=== PATIENT | male | born 1945 | race Caucasian/White ===

== ENCOUNTER 2017-07-04 07:41 | Day surgery (SDC) | payer OTHER, MEDICARE ==
[2017-07-04] MEDS ORDERED: LIDOCAINE 1% 300 MG/30 ML SDV SC ONE (07:45)
[2017-07-04] MEDS ORDERED: LIDOCAINE 1% 300 MG/30 ML SDV ONE (07:54)
[2017-07-04] MEDS ORDERED: fentaNYL 100 MCG/2 ML INJ ONE (07:55)
[2017-07-04] MEDS ORDERED: MIDAZOLAM 2 MG/2 ML VIAL ONE (07:55)
[2017-07-04] MEDS ORDERED: BUPIVACAINE 0.5% 30 ML SDV ONE (07:56)
--- NOTE | 2017-07-04 08:34 | PDPROPOC ---
Sedation Plan of Care Sedation Plan of Care: vital signs stable, mental status noted, patient educated of risks, benefits, alternatives, patient can tolerate sedation ASA Classification: ASA 1 Planned drugs: fentanyl, midazolam Mallampati Score: Class 1 Mallampati Reference Image: Patient passed 3-3-2 rule?: Yes
--- NOTE | 2017-07-04 08:34 | PDGENHP ---
History & Physical Chief Complaint: afib History of Present Illness: no afib since ablation Relevant Physical Exam: s1s2 rrr cta ao3 Cardiorespiratory Assessment: LINQ explant today
--- NOTE | 2017-07-04 09:03 | EPPROC ---
Electrophysiology Procedure Note: LINQ monitor was explanted in CCL under sterile conditions. Wound was closed with erica. No sedation used. Local anesthesia only. No complications. Patient Problems: Problems Problem Status Onset Afib Acute SOB (shortness of breath) Acute
== END 2017-07-04 09:57 | disposition home or self-care (01) ==
LOC: FCATH 07:41
PROVIDERS: ATTEND Internal Medicine Cardiovascular Disease
PROC: 0JPT02Z Removal of Monitoring Device from Trunk Subcutaneous Tissue and Fascia, Open Approach (ICD-10-PCS; principal; 2017-07-04)
DX: Z45.09 Encounter for adjustment and management of other cardiac device (principal); I48.91 Unspecified atrial fibrillation; R06.02 Shortness of breath
CPT/HCPCS: J2250; J3010